=== PATIENT | female | born 1985 | race Caucasian/White ===

== ENCOUNTER 2025-05-11 14:42 | Outpatient (CLI) | payer OTHER | END 2025-05-11 15:49 | disposition home or self-care (01) | LOC: NST 14:42 | PROVIDERS: ATTEND Obstetrics & Gynecology Maternal & Fetal Medicine | DX: Z34.83 Encounter for supervision of other normal pregnancy, third trimester (principal) ==

== ENCOUNTER 2025-06-18 08:15 | Inpatient (IN) | payer OTHER ==
[~2025-06-18] VITALS: Ht 157.5 cm; Wt 2.7 kg
[2025-06-18] MEDS ORDERED: SYNTHROID (09:38)
[2025-06-18] MEDS ORDERED: ACIDO FOLICO 1MG (09:39)
[2025-06-18 09:49] LABS: BASO % 0.3 % (0.1-1.2); EOS # 0.04 (0.04-0.54); EOS % 0.4 % (0.7-7.0); LYMPH # 1.43 (1.18-3.74); LYMPH % 14.8 % (19.3-53.1); MEAN PLATELET VOLUME 10.50 fl (9.4-12.4); MONO # 0.60 (0.24-0.82); MONO % 6.2 % (4.7-12.5); NEUT # 7.48 (1.56-6.13); NEUT % 77.8 % (34.0-71.1); RED CELL DISTRIBUTION WIDTH 13.4 % (11.6-14.4)
[2025-06-18 10:15] LABS: ALT/SGPT 23.0 U/L (12-78); AST/SGOT 15.0 U/L (15-37); BILIRUBIN TOTAL 0.55 mg/dL (0.3-1.2); BUN CREA RATIO 15.0 (7.0-25.0); CREATININE SERUM 0.48 mg/dL (0.55-1.02); GFR 144.74; GLOBULINA 4.2 G/DL (2.4-3.5); GLUCOSE FASTING 79.0 mg/dL (65-100); OSMOLALITY SERUM 278.0 MOSM/KG (275-295)
[2025-06-18 10:32] LABS: INR 0.96
[2025-06-23] MEDS ORDERED: ERYTHROMYCIN BASE OPHT 1GM EACH TUBE OP ONE (07:04)
[2025-06-23] MEDS ORDERED: OBSTETRIX DHA1 EAC1 PO (08:04)
[2025-06-23 08:06] VITALS: BP 112/73
[2025-06-23] MEDS ORDERED: CEFAZOLIN SODIUM 1,000 MG VIAL ONE (08:43)
[2025-06-23] MEDS ORDERED: OXYTOCIN 10 UNITS/ML VIAL IV ONE (13:45)
[2025-06-23] MEDS ORDERED: MORPHINE SULFATE 4 MG/ML VIAL IV ONE (15:30)
[2025-06-23] MEDS ORDERED: OXYTOCIN 1,000 ML IV SCH (15:45)
[2025-06-23] MEDS ORDERED: MORPHINE SULFATE 4 MG/ML CARTRIDGE IV PRN (15:45)
[2025-06-23] MEDS ORDERED: OXYTOCIN 10 UNITS/ML VIAL ONE (16:34)
[2025-06-23 17:53] VITALS: BP 108/69
[2025-06-24 00:51] VITALS: BP 115/72
[2025-06-24 04:30] VITALS: BP 105/68
[2025-06-24] MEDS ORDERED: KETOROLAC TROMETHAMINE 30 MG VIAL IV SCH (07:42)
[2025-06-24] MEDS ORDERED: ACETAMINOPHEN 325 MG TABLET PO SCH (07:42)
[2025-06-24] MEDS ORDERED: KETOROLAC TROMETHAMINE 30 MG VIAL IV NR (07:45)
[2025-06-24 08:00] VITALS: BP 102/67
[2025-06-24 09:23] LABS: BASO % 0.1 % (0.1-1.2); EOS # 0.01 (0.04-0.54); EOS % 0.1 % (0.7-7.0); LYMPH # 1.14 (1.18-3.74); LYMPH % 7.9 % (19.3-53.1); MEAN PLATELET VOLUME 10.80 fl (9.4-12.4); MONO # 0.76 (0.24-0.82); MONO % 5.3 % (4.7-12.5); NEUT # 12.42 (1.56-6.13); NEUT % 85.8 % (34.0-71.1); RED CELL DISTRIBUTION WIDTH 13.7 % (11.6-14.4)
[2025-06-24] MEDS ORDERED: IRON/V.C/V.B12/FOLIC A/VIT. E 1 CAPL CAPLET PO SCH (12:00)
[2025-06-24 20:02] VITALS: BP 105/72
[2025-06-25 00:44] VITALS: BP 92/62
[2025-06-25] MEDS ORDERED: OxyCODONE HCL 5 MG TABLET (ROXICODONE) PO PRN (06:00)
[2025-06-25 08:00] VITALS: BP 95/61
[2025-06-25 18:58] VITALS: BP 119/78
[2025-06-26 00:11] VITALS: BP 100/67
[2025-06-26 08:00] VITALS: BP 104/69
[2025-06-26 17:20] VITALS: BP 131/79
[2025-06-26] MEDS ORDERED: ACETAMINOPHEN 500 MG GEL..CAP PO PRN (17:30)
[2025-06-26 22:07] LABS: BASO % 0.4 % (0.1-1.2); EOS # 0.29 (0.04-0.54); EOS % 3.4 % (0.7-7.0); LYMPH # 1.35 (1.18-3.74); LYMPH % 15.9 % (19.3-53.1); MEAN PLATELET VOLUME 10.30 fl (9.4-12.4); MONO # 0.77 (0.24-0.82); MONO % 9.1 % (4.7-12.5); NEUT # 5.97 (1.56-6.13); NEUT % 70.3 % (34.0-71.1); RED CELL DISTRIBUTION WIDTH 13.9 % (11.6-14.4)
[2025-06-26 22:33] LABS: ALT/SGPT 23.0 U/L (12-78); AST/SGOT 24.0 U/L (15-37); BILIRUBIN TOTAL 0.33 mg/dL (0.3-1.2); BUN CREA RATIO 19.0 (7.0-25.0); CREATININE SERUM 0.53 mg/dL (0.55-1.02); GFR 129.1; GLOBULINA 3.0 G/DL (2.4-3.5); GLUCOSE FASTING 90.0 mg/dL (65-100); OSMOLALITY SERUM 284.0 MOSM/KG (275-295)
[2025-06-26 23:15] LABS: URINE APPEARANCE Clear; URINE BILIRRUBIN Negative (NEGATIVE); URINE BLOOD Small; URINE COLOR Yellow; URINE GLUCOSE Negative (NEGATIVE); URINE KETONE Negative (NEGATIVE); URINE LEUKOCYTE Negative; URINE NITRATE Negative; URINE PROTEIN Negative (NEGATIVE); URINE UROBILINOGEN 1.0 E.U./dl
[2025-06-26 23:18] LABS: URINE BACTERIA 85.1 uL (0.0-1933); URINE EPITHELIAL CELLS 5.2 uL (0.0-38.8); URINE RBC 3.3 uL (0.0-20.8); URINE WBC 5.8 uL (0.0-23.2)
[2025-06-26 23:19] LABS: URINE CAST 0.00 uL (0.0-1.40)
[2025-06-27] VITALS: BP 85/53
[2025-06-27 07:25] LABS: BASO % 0.5 % (0.1-1.2); EOS # 0.29 (0.04-0.54); EOS % 3.8 % (0.7-7.0); LYMPH # 1.24 (1.18-3.74); LYMPH % 16.4 % (19.3-53.1); MEAN PLATELET VOLUME 10.40 fl (9.4-12.4); MONO # 0.66 (0.24-0.82); MONO % 8.7 % (4.7-12.5); NEUT # 5.25 (1.56-6.13); NEUT % 69.4 % (34.0-71.1); RED CELL DISTRIBUTION WIDTH 13.8 % (11.6-14.4)
[2025-06-27 08:56] VITALS: BP 109/72
[2025-06-27] MEDS ORDERED: SOD FERRIC GLUC COMPLX/SUCROSE 62.5 MG/5 ML AMPUL IV NR (13:15)
[2025-06-27 16:00] VITALS: BP 108/64
[2025-06-28] VITALS: BP 106/70
[2025-06-28 09:24] VITALS: BP 113/73
[2025-06-28 17:00] VITALS: BP 111/71
[2025-06-29 00:23] VITALS: BP 98/63
[2025-06-29 08:51] VITALS: BP 103/66
== END 2025-06-29 17:50 | disposition home or self-care (01) | DRG 788 ==
LOC: O/R 06-23 06:00 → OB/GYN 06-23 08:15
PROVIDERS: Obstetrics & Gynecology; Obstetrics & Gynecology Gynecology; ADMIT Obstetrics & Gynecology Maternal & Fetal Medicine; ATTEND Obstetrics & Gynecology Maternal & Fetal Medicine
PROC: 4A1HXCZ Monitoring of Products of Conception, Cardiac Rate, External Approach (ICD-10-PCS; 2025-06-23)
PROC: 10D00Z1 Extraction of Products of Conception, Low, Open Approach (ICD-10-PCS; principal; 2025-06-23 07:30)
DX: O34.29 Maternal care due to uterine scar from other previous surgery (principal); O99.02 Anemia complicating childbirth; D64.9 Anemia, unspecified; Z3A.37 37 weeks gestation of pregnancy; Z37.0 Single live birth